=== PATIENT | male | born 1995 | race Caucasian/White ===

== ENCOUNTER → 2020-11-28 10:21 | Outpatient (BNVA) | payer BC, SELFPAY | PROVIDERS: Visit Provider Registered Nurse Neonatal Intensive Care | DX: M25.521 Pain in right elbow (principal) | CPT/HCPCS: 73080 ==

== ENCOUNTER 2021-06-05 20:12 | Emergency (ER) | payer BC, SELFPAY ==
[2021-06-05 20:31] VITALS: BP 155/92; PULSE 80; RESP 20; TEMP 37.8; O2SAT 98; BMI 36.2
--- NOTE | 2021-06-05 20:57 | ED_ITS ---
HPI - Extremity Problem General: Chief complaint: Extremity Injury, Lower Stated complaint: L foot injury Time Seen by Provider: 06/05/21 20:34 History of Present Illness: Patient complains about left foot pain that occurred on standing this morning. He felt pain across the bottom of his foot from toe back to the heel. Did improve some throughout the day and now its its hurting again some more. Patient denies any injury. Denies any recent illness. 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 Patient was able to work today. Denies any other symptoms. Associated symptoms: Deny chest pain, fever(s) or rash Review of Systems Narrative: Patient been outside all day at work. Is slightly sunburned. Const: Denies: fever(s), chills or body aches Eyes: Denies: eye discomfort ENMT: Denies: throat pain Card: Denies: chest pain Resp: Denies: dyspnea GI: Denies: abdominal pain, nausea or vomiting Musc: Reports: extremity pain (Left foot sore on standing today. Pain radiates up the foot somewhat.) and other (Eyes any history of problems.) Skin/Breast: Denies: rash Neuro: Denies: headache(s) Psych: Denies: depression or suicidal ideation [facility] PFSH: Social History (Updated 11/28/20 @ 10:14 by Sandra Vargas LPN) Smoking and tobacco status: never smoked Physical Exam Const: COMMON NORMALS: no acute distress, patient oriented x3 and alert OTHER: Fever 100.1. HENMT: COMMON NORMALS: normocephalic HEAD & SCALP: normocephalic Eye: COMMON NORMALS: EOMs intact bilaterally Neck/C-Spine: COMMON NORMALS: no JVD Resp: COMMON NORMALS: normal respiratory effort and No use of accessory muscles Cardio: COMMON NORMALS: no JVD GI: INSPECTION: Yes normal to inspection Extremity: COMMON NORMALS: normal to inspection and full ROM LEFT LOWER EXTREMITY: Yes foot & digits (Pain across bottom foot with palpation consistent with plantar fasciitis.) Left foot and digits: Yes ROM (Appears normal), Yes neurovascular exam (Intact) and Yes other (No signs of infection.) Neuro: COMMON NORMALS: patient oriented x3 SENSORIUM/ORIENTATION: Yes alert Psych: COMMON NORMALS: mental status grossly normal Skin: COMMON NORMALS: no rashes or lesions noted GENERAL SKIN EXAM: no rashes or lesions noted Course Vital Signs: Vital signs: Vital Signs Temperature 100.1 F H 06/05/21 20:31 Pulse Rate 80 06/05/21 20:31 Respiratory Rate 20 H 06/05/21 20:31 Blood Pressure 155/92 06/05/21 20:31 Pulse Oximetry 98 06/05/21 20:31 MDM - Extremity (Nontraumatic) Medical Decision Making Presents with a plantar fascia pain. Patient diagnosed plantar fasciitis. Patient did have low-grade temp 100.1 I believe this surprised [facility] and sunburn while at work today. Patient has is get arch supports take medication if he has any worsening symptoms or fever worsens follow-up here or go to see his primary care provider. Discharge Plan Discharge Patient Disposition: Home Clinical Impression: Plantar fasciitis of left foot Condition: Stable Prescriptions: New Celebrex 100 mg capsule 100 mg PO BID Qty: 20 0RF Voltaren Arthritis Pain 1 % gel 4 g topical QID Qty: 100 0RF Discharge Orders: Discharge ED (Routine); Ordered 06/05/21 Ordered By: Robert Cornejo Discharge Diet: Usual diet Discharge Activity: Increase activity as tolerated Patient Instructions: Plantar Fasciitis (ED), Plantar Fasciitis Exercises (ED) Activity Restrictions/Additional Instructions: Follow-up with medical provider as directed. Take medications as prescribed. Return to the ER or your medical provider if condition worsens. Please read and understand discharge instructions. If any questions ask please. Make sure to get a shoe with good arch support. or by an arch support insert. Coding Level of Care Code ED Director Of Security for Ryan Jimenez
[2021-06-05] MEDS: CELEcoxib 200 mg Capsule 400 MG PO (21:02)
== END 2021-06-05 21:03 | disposition home or self-care (01) ==
PROVIDERS: Emergency Provider Nurse Practitioner Family
DX: M72.2 Plantar fascial fibromatosis (principal)
CPT/HCPCS: 99283